=== PATIENT | female | born 1985 | race Asian ===

== ENCOUNTER 2017-01-29 21:23 | Emergency (ER) | payer OTHER ==
[2017-01-29 21:37] VITALS: BP 109/73; PULSE 71; TEMP 97.9; BMI 30.7
--- NOTE | 2017-01-29 22:16 | PDOC ---
*Physical Exam - Vital Signs Last Vital Signs Temp Pulse Resp BP Pulse Ox 97.9 F 71 16 109/73 100 01/29/17 21:29 01/29/17 21:29 01/29/17 21:29 01/29/17 21:29 01/29/17 21:29 Medical Decision Making - Medical Decision Making 01/29/17 22:15 agree with care from [facility] ED[facility] Add[facility]
[2017-01-29 22:28] LABS: URINE APPEARANCE SLCLOUDY; URINE BILIRUBIN NEGATIVE (NEGATIVE); URINE BLOOD NEGATIVE (NEGATIVE); URINE COLOR YELLOW; URINE GLUCOSE (UA) 1+ (NEGATIVE); URINE KETONE NEGATIVE (NEGATIVE); URINE LEUK ESTERASE NEGATIVE (NEGATIVE); URINE NITRITE NEGATIVE (NEGATIVE); URINE PROTEIN NEGATIVE (NEGATIVE); URINE UROBILINOGEN NEGATIVE mg/dL (0.2-1.0)
--- NOTE | 2017-01-29 23:25 | PDOC ---
History of Present Illness - General Chief Complaint: Pain Stated Complaint: URINARY PAIN Time Seen by Provider: 01/29/17 21:54 History Source: Patient Exam Limitations: No Limitations - History of Present Illness Travel History: No Initial Comments: 01/29/17 23:24 31yo Female patient w/ PmHx: NIDDM, recurrent UTI presents to ED c/o urinary urgency, frequency, burning which began on Thursday. 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 Patient felt relief for past 3 days, but symptom return today. Patient now c/o chills, weakness and back pain. LNMP: Jan 14. Patient denies any other complaints at this time. Timing/Duration: reports: getting worse, changing over time Quality: reports: moderate Abdominal Pain Onset Location: reports: suprapubic Pain Radiation: reports: back Activities at Onset: reports: no specific activity Treatment Prior to Arrive: improves with: analgesics, other (Cipro 500mg BID) Aggravating Factors: worse with: None, Defecation, Eating, Emotional upset, Exertion, [place], Movement, Voiding, Change in position Alleviating Factors: worse with: None, Belching, Shallow Breathing, Defecation, Eating, Holding Breath, Passing Gas, Change in Position, Rest, Voiding, Vomiting Past History - Travel Traveled outside of the country in the last 30 days: No Close contact w/someone who was outside of country & ill: No - Past Medical History Allergies/Adverse Reactions: Allergies Allergy/AdvReac Type Severity Reaction Status Date / Time No Known Allergies Allergy Verified 01/29/17 21:37 Home Medications: Ambulatory Orders Nitrofurantoin Monohyd/M-Cryst [Macrobid -] 100 mg PO BID #14 capsule 01/30/17 Diabetes: Yes Suicide Attempt (Hx): No - Surgical History Cholecystectomy: Yes - Immunization History Immunization Up to Date: Yes - Psycho/Social/Smoking Cessation Hx Anxiety: No Suicidal Ideation: No Smoking History: Former smoker Have you smoked in the past 12 months: Yes Number of Cigarettes Smoked Daily: 2 Information on smoking cessation initiated: No Hx Alcohol Use: Yes (socially) Drug/Substance Use Hx: No Substance Use Type: None Abd/GI Specific PMHX - Complaint Specific PMHX Colitis: No Diverticulitis: No Gall Bladder Disease: No GERD: No Hepatitis: No Irritable Bowel Synd (IBS): No Pancreatitis: No GI Ulcer Disease: No Review of Systems - Review of Systems Able to Perform ROS?: Yes Is the patient limited Wallisian proficient: No Constitutional: Yes: Chills, Weakness. No: Fever Respiratory: No: Cough, Orthopnea, Wheezing Cardiac (ROS): No: Chest Pain, Lightheadedness, Palpitations, Syncope, Chest Tightness ABD/GI: No: Nausea, Poor Appetite, Poor Fluid Intake, Vomiting, Abdominal cramping : Yes: Burning, Dysuria, Frequency, Flank Pain, Pain, Urgency. No: Discharge , Hematuria, Incontinence Musculoskeletal: Yes: Back Pain Integumentary: No: Bruising, Erythema, Rash, Sweating Neurological: No: Headache, Seizure, Ataxia, Dizziness All Other Systems: Reviewed and Negative *Physical Exam - Vital Signs Last Vital Signs Temp Pulse Resp BP Pulse Ox 97.9 F 71 16 109/73 100 01/29/17 21:29 01/29/17 21:29 01/29/17 21:29 01/29/17 21:29 01/29/17 21:29 - Physical Exam General Appearance: Yes: Nourished, Appropriately Dressed. No: Apparent Distress, Mild Distress, Moderate Distress, Severe Distress Neck: positive: Trachea midline, Normal Thyroid, Supple. negative: Stridor, Lymphadenopathy (R), Lymphadenopathy (L), Tender lateral, Tender midline Respiratory/Chest: positive: Lungs Clear, Normal Breath Sounds. negative: Chest Tender, Respiratory Distress, Accessory Muscle Use, Labored Respiration, Rapid RR, Rhonchi, Stridor, Wheezing Cardiovascular: positive: Regular Rhythm, Regular Rate Gastrointestinal/Abdominal: positive: Normal Bowel Sounds, Tender, Soft, Tenderness (Suprapubic region). negative: Distended, Guarding, Rebound Musculoskeletal: positive: Normal Inspection, CVA Tenderness, CVA Tenderness (R) , CVA Tenderness (L). negative: Decreased Range of Motion, Muscle Spasm, Vertebral Tenderness Extremity: positive: Normal Capillary Refill, Normal Inspection, Normal Range of Motion. 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, Fully Oriented, Alert, Normal Mood/ Affect, Normal Response, Motor Strength 10/10 ED Treatment Course - LABORATORY CBC & Chemistry Diagram: 01/29/17 23:40 01/29/17 23:40 - ADDITIONAL ORDERS Additional order review: Laboratory Results 01/29/17 01/29/17 22:14 22:12 Urine Color Yellow Urine Appearance Slcloudy Urine pH 7.0 Urine Protein Negative Urine Glucose (UA) 1+ H Urine Ketones Negative Urine Blood Negative Urine Nitrite Negative Urine Bilirubin Negative Urine Urobilinogen Negative Ur Leukocyte Esterase Negative Urine HCG, Qual Negative - RADIOLOGY Radiology Studies Ordered: Category Date Time Status ABDOMEN & PELVIS CT W/O CONTR [CT] Stat CT Scan 01/29/17 22:38 Taken *DC/Admit/Observation/Transfer Diagnosis at time of Disposition: Dysuria - Discharge Dispostion Disposition: HOME Condition at time of disposition: Improved Admit: No - Prescriptions Prescriptions: Nitrofurantoin Monohyd/M-Cryst [Macrobid -] 100 mg PO BID #14 capsule - Referrals Referrals: Abel Lorenzana MD [Staff Physician] - - Patient Instructions Printed Discharge Instructions: DI for Dysuria -- Adult Additional Instructions: Follow up with Dr. Dora Lorenzana (Urology) this week. Call to schedule appointment. Take medications as prescribed. Return if any concerns for further evaluation. Print Language: FAROESE
[2017-01-29 23:47] LABS: BASOPHIL 1.3 % (0-2.0); EOSINOPHIL 1.7 % (0-4.5); MCH 29.9 pg (25.7-33.7); MCHC 34.2 g/dl (32.0-36.0); MEAN CELL VOLUME 87.4 fl (80-96); MEAN PLT VOLUME 8.4 fl (7.5-11.1); NEUTROPHILS 58.6 % (42.8-82.8); PLATELET COUNT 369 K/MM3 (134-434); RDW 12.7 % (11.6-15.6); WHITE BLOOD COUNT 10.8 K/mm3 (4.0-10.0)
[2017-01-30 00:09] LABS: ALBUMIN 4.1 g/dl (3.4-5.0); ALK PHOS 112 U/L (45-117); BILIRUBIN,TOTAL 0.7 mg/dL (0.2-1.0); CALCIUM 8.7 mg/dL (8.5-10.1); CO2 27 mmol/L (21-32); CREATININE 0.7 mg/dL (0.55-1.02); GLUCOSE,RANDOM 113 mg/dL (74-106); SGOT/AST 29 U/L (15-37); SGPT/ALT 61 U/L (12-78); TOT PROT 7.2 g/dl (6.4-8.2)
[2017-01-30 00:52] LABS: ANION GAP 11 (8-16)
[2017-01-30] MEDS ORDERED: NITROFURANTOIN MACROCRYSTAL 50 MG CAPSULE (FP) PO SCH (02:45)
[2017-01-30] MEDS ORDERED: NITROFURANTOIN MACROCRYSTAL 50 MG CAPSULE (FP) ONE (02:51)
== END 2017-01-30 02:49 | disposition home or self-care (01) ==
LOC: JER 21:23
DX: R30.0 Dysuria (principal); E11.9 Type 2 diabetes mellitus without complications; Z87.891 Personal history of nicotine dependence
CPT/HCPCS: 36415; 74176-TC; 80053; 81003; 84703; 85025; 87086; 99281-25